=== PATIENT | female | born 1995 | race Two or more races ===

== ENCOUNTER 2021-08-07 19:14 | Emergency (ER) | payer SELFPAY ==
[~2021-08-07] VITALS: Ht 167.6 cm; Wt 60.0 kg
[2021-08-07 21:39] LABS: BILIRUBIN,URINE SMALL (NEG); CLARITY,URINE CLEAR; COLOR,URINE AMBER; NITRITE,URINE NEGATIVE (NEG); PROTEIN,URINE NEGATIVE (NEG-TRACE)
[2021-08-07 21:44] LABS: RBC,URINE RARE /HPF (0-2)
[2021-08-07 21:45] LABS: BACTERIA,URINE 0 /HPF (0-FEW); WBC,URINE 20-40 /HPF (0-4)
--- NOTE | 2021-08-07 21:48 | PHYS DOC ---
Past Medical History Past Surgical History: No Surgical History General Adult EDM: Chief Complaint: VAGINAL BLEEDING HPI: HPI: 25 yo F at 11w5d (based on 05/17 lmp), has medical history of hypothyroidism, presents the ED with complaints of vaginal bleeding yesterday such that she used 3 pads. Reports no vaginal bleeding today. States she was anxious at work, became dizzy and was sweating while she was vomiting up yellow emesis. States she is had morning sickness for the past month and a half. Had a positive test performed at a hospital in [place] when she was seen for dizziness. Reports she uses protection for sexual intercourse. States she had a white-yellow discharge yesterday when using the restroom. Has received the majority vaccine. Is not concerned for sexually transmitted diseases. States she came to the emergency room because she cannot see her physician for another month and is worried about her . H/o 3 , uncomplicated pregnancies. patient is Armenian-speaking and starting sheet tank operator services were used for this [id number]. Review of Systems: Review of Systems: Constitutional: Denies fever or chills. [] Eyes: Denies change in visual acuity. [] HENT: Denies nasal congestion or sore throat. [] Respiratory: Denies cough or shortness of breath. [] Cardiovascular: Denies chest pain or edema. [] GI: Denies nausea, vomiting, bloody stools or diarrhea. [] : Denies dysuria or flank pain or current vaginal bleeding Musculoskeletal: Denies back pain or joint pain. [] Integument: Denies rash or diaphoresis Neurologic: Denies headache, focal weakness or sensory changes. [] Endocrine: Denies polyuria or polydipsia. [] Lymphatic: Denies swollen glands. [] Psychiatric: Denies depression or suicidal ideations Heart Score: C/O Chest Pain: No Risk Factors: Risk Factors: DM, Current or recent (<one month) smoker, HTN, HLP, family history of CAD, obesity. Risk Scores: Score 0 - 3: 2.5% MACE over next 6 weeks - Discharge Home Score 4 - 6: 20.3% MACE over next 6 weeks - Admit for Clinical Observation Score 7 - 10: 72.7% MACE over next 6 weeks - Early Invasive Strategies Allergies: Allergies: Allergies Coded Allergies Type Severity Reaction Last Updated Verified No Known Drug Allergies 08/07/21 No Physical Exam: PE: Constitutional: Well developed, well nourished, no acute distress, non-toxic appearance. HENT: Normocephalic, atraumatic, Eyes: EOMI, conjunctiva normal, no discharge. Neck: Normal range of motion, supple, Cardiovascular: S1/2 present, mild tachycardia Lungs & Thorax: Speaking in full sentences, bilateral equal chest rise, no tachypnea or increased work of breathing Abdomen: soft, no tenderness, Skin: Warm, dry, no erythema, no rash. [] Back: No tenderness, no CVA tenderness. [] Extremities: No tenderness, no cyanosis, no lower extremity edema Neurologic: Alert and oriented X 3, normal motor function, normal sensory function, no focal deficits noted. [] Psychologic: Affect normal, judgement normal, mood normal. [] Current Patient Data: Labs: Laboratory Tests Test 08/07/21 21:33 POC Urine HCG, Qualitative Hcg positive (Negative) Vital Signs: Vital Signs Date Time Temp Pulse Resp B/P (MAP) Pulse Ox O2 Delivery O2 Flow Rate FiO2 08/07/21 21:10 97.5 100 16 134/75 (94) 100 97.5 EKG: EKG: [] Radiology/Procedures: Radiology/Procedures: []IMAGING REPORT Signed PATIENT: YESIKA CURTISCOUNT: [id number] : 1995 LOCATION: ER AGE: 25 SEX: F EXAM STATUS: REG ER ORD. PHYSICIAN: FAITH SIMMONS DO REASON: vb in PROCEDURE: OB < 14 WKS US OB <14 WKS +TV Clinical Indication: Reason: vb in / Spl. Instructions: / History: Comparison: None. TECHNIQUE: Real-time ultrasound imaging of the pelvis using transabdominal window is performed. Findings: Uterus measures 8.4 x 10 x 8.8 cm. There is an intrauterine gestational sac with normal contour. No perigestational hemorrhage is seen. In the gestational sac a yolk sac is not identified. A pole is identified. Stigler-rump length 4.3 cm, 11 weeks and 1 day. Sonographic EDC is February 25, 2022. Estimated heart rate 168 bpm. There is normal blood flow in the right ovary. There is a small probable corpus luteum. The left maternal ovary is not visualized probably due to overlying bowel gas. No cul-de-sac free fluid is seen. The cervix appears closed. The urinary bladder is unremarkable. IMPRESSION: 1. Single live intrauterine gestation, estimated sonographic gestational age 11 weeks and 1 day. 2. Small probable right corpus luteum. Electronically signed by: Fuentes Stevenson MD (08/07/2021 10:47 PM) [facility] DICTATED and SIGNED BY: FUENTES STEVENSON MD DATE: 08/07/21 [id number] 0 Course & Med Decision Making: Course & Med Decision Making Pertinent Labs and Imaging studies reviewed. (See chart for details) Concern for threatened - no active vaginal bleeding today. TVUS w/IUP, normal FHR. Urinalysis concerning for early urinary tract infection will treat with Vantin for complicated UTI. Patient reports morning sickness symptoms - will prescribe vitamin B6 and Zofran ODT. Patient was treated for bacterial vaginosis in the ED with 2 g of Flagyl. Patient calm in ED, in no distress with no active vomiting. Does appear slightly anxious and worried regarding her -was educated with starting sheet tank operator phone regarding threatened miscarriage. Tachycardia spontaneously resolved. Will discharge home with strict ED return precautions were given for vaginal bleeding, abdominal pelvic pain, fever or abnormal vaginal discharge. Encouraged urgent outpatient follow-up with PMD and SUPPLY CONTROLLER for definitive management of . Life-threatening processes were considered but are low suspicion at this time, given history, physical exam and ED workup. Pt was educated on all prescription medications and adverse effects. All patient's questions were answered and pt was stable at time of discharge. Life/limb-threatening differential includes but is not limited to, ectopic , septic , sepsis/infection (endometritis, sti/pid, cystitis, pyelonephritis, Ok's gangrene or necrotizing fasciitis, abscess), ovarian torsion, ruptured hemorrhagic ovarian cyst, endometriosis, ureterolithiasis, thrombophlebitis, hemorrhage/DIC, organ prolapse, abdominal aortic aneurysm, mesenteric ischemia, neoplasm, bowel obstruction or surgical abdomen. I have spoken with the patient and/or caregivers. I explained the patient's condition, diagnoses and treatment plan based on the information available to me at this time. I have answered the patient and/or caregiver's questions and addressed any concerns. The patient and/or caregivers have a good understanding of patient's diagnosis, condition and treatment plan as can be expected at this point. Vital signs have been stable. Patient's condition is stable and appropriate for discharge from the emergency department. Patient will pursue further outpatient evaluation with primary care physician or other designated or consulting physician as outlined in the discharge instructions. The patient and/or caregivers are agreeable to this plan of care and follow-up instructions have been explained in detail. The patient and/or caregivers have received these instructions in written form and have expressed an understanding of the discharge instructions. The patient and/or caregivers are aware that any significant change of condition or worsening of symptoms should prompt immediate return to this or the closest emergency department or call to 911. [employer] Disclaimer: Dragon Disclaimer: This electronic medical record was generated, in whole or in part, using a voice recognition dictation system. Departure Departure Impression: Primary Impression: Threatened in first trimester Additional Impressions: Vomiting during UTI (urinary tract infection) Bacterial vaginosis in Disposition: 01 HOME / SELF CARE / HOMELESS Condition: STABLE Referrals: NO PCP (PCP) Rocio un seguimiento con luis mdico de atencin primaria en 1 semana para la atencin de rutina O SEGUIMIENTO CON MEDICINA FAMILIAR: [address] [facility], [facility] [address] [place] [address] Telfono: [phone] Patient Instructions: Bacterial Vaginosis, Hyperemesis Gravidarum, Urinary Tract Infection Additional Instructions: SEGUIMIENTO CON OB / PATTERN MAKER: PARA UN TRATAMIENTO DEFINITIVO EN 2-3 GIORDANO PARA EL EMBARAZO [facility] [address] [facility], [address] [place] [address] Telfono: INSTRUCCIONES GENERALES DE NICOLE DEL DEPARTAMENTO DE EMERGENCIAS Kwaku por venir al Departamento de Emergencias (ED) del [facility] hoy y confiando en nosotros con luis cuidado. Confiamos que haya tenido kimberly experiencia positiva en nuestra Emergencia Departamento. Si desea hablar con la gerencia del departamento, puede llamar al Director al [phone]. LILIBETH INSTRUCCIONES DE SEGUIMIENTO SON LAS SIGUIENTES: 1. Tiene un mdico privado? Si no tiene un mdico privado, solicite un lista de recursos de mdicos o clnicas que pueden ayudarlo con la atencin de seguimiento. 2. El Physicain de Emergencias hager interpretado lilibeth radiografas. El especialista en jordin X tambin revselos. Si hay un cambio en los resultados, se le notificar en 48 horas cuando en todo posible. 3. Se hager realizado kimberly prueba de laboratorio o cultivo, se revisarn lilibeth resultados y se le notificado si necesita un cambio de tratamiento. INSTRUCCIONES E INFORMACIN ADICIONALES: 1. Luis atencin hoy hager sido supervisada por un mdico especialmente capacitado en emergencias. cuidado. Muchos problemas requieren ms de kimberly evaluacin para un diagnstico completo y tratamiento. Le recomendamos que programe luis laura de seguimiento segn lo recomendado para Asegurar el tratamiento completo de luis enfermedad o lesin. Si no puede obtener un seguimiento cuidado y contina teniendo un problema, o si luis condicin empeora, le recomendamos que Regrese al servicio de urgencias. 2. No podemos determinar con seguridad luis condicin por telfono ni podemos jerman consejos mdicos slidos por telfono. Por estas razones de seguridad, si llama al mdico consejo, le pediremos que acuda al servicio de urgencias para kimberly evaluacin adicional. 3. Si tiene alguna pregunta con respecto a estas instrucciones de nicole, llame al servicio de urgencias al . INFORMACIN DE SEGURIDAD: En genaro de la seguridad, el bienestar y la prevencin de lesiones; te animamos a que uses tu cinturn de seguridad, si fuma; bastante fumador, y alentamos a la merced a usar un ora protector para andar en bicicleta y otros eventos deportivos que presentan un mayor riesgo de lesin en la jack. SI LILIBETH SNTOMAS EMPEORAN O SE DESARROLLAN NUEVOS SNTOMAS, O TIENE PREOCUPACIONES ACERCA DE LUIS CONDICIN; O SI LUIS CONDICION EMPLEA MIENTRAS ESPERA LUIS LAURA DE SEGUIMIENTO; CUALQUIERA PNGASE EN CONTACTO CON LUIS MDICO DE CUIDADO PRIMARIO, EL MDICO CUYO NOMBRE Y NMERO LE DIERON, O REGRESE INMEDIATAMENTE AL EDIFICIO. Scripts Pyridoxine Hcl (VITAMIN B-6 ) 50 Mg Tablet 25 MG PO every 6-8 hours PRN for NAUSEA MDD 200 mg, #20 TAB Prov: FAITH SIMMONS DO 08/08/21 Ondansetron (ONDANSETRON ODT) 4 Mg Tab.rapdis 1 TAB PO PRN Q6-8HRS for nausea/vomiting, #16 TAB Prov: FAITH SIMMONS DO 08/08/21 Cefpodoxime Proxetil (CEFPODOXIME PROXETIL) 100 Mg Tablet 100 MG PO BID for 7 Days, #14 TAB Prov: FAITH SIMMONS DO 08/08/21 FAITH SIMMONS DO Aug 07, 2021 21:48
[2021-08-07 21:52] LABS: BASO % 0 % (0-3); EOS # 0.2 x10^3/uL (0.0-0.7); EOS % 2 % (0-3); HEMATOCRIT 38.4 % (36.0-47.0); HEMOGLOBIN 13.3 g/dL (12.0-15.5); LYMPH # 2.3 x10^3/uL (1.0-4.8); LYMPH % 27 % (24-48); MEAN CORPUSCULAR HEMOGLOBIN 28 pg (25-35); MEAN CORPUSCULAR HGB CONC 35 g/dL (31-37); MEAN CORPUSCULAR VOLUME 81 fL (79-100); MONO # 0.8 x10^3/uL (0.0-1.1); MONO % 9 % (0-9); NEUT # 5.3 x10^3/uL (1.8-7.7); NEUT % 62 % (31-73); PLATELET COUNT 238 x10^3/uL (140-400); RED BLOOD COUNT 4.74 x10^6/uL (3.50-5.40); RED CELL DISTRIBUTION WIDTH 13.5 % (11.5-14.5); WHITE BLOOD COUNT 8.5 x10^3/uL (4.0-11.0)
[2021-08-07 21:59] LABS: CALCIUM 8.5 mg/dL (8.5-10.1); CREATININE 0.5 mg/dL (0.6-1.0); GFR 149.1; POTASSIUM 3.7 mmol/L (3.5-5.1)
[2021-08-07 22:00] LABS: PROTHROMBIN TIME PATIENT 12.7 SEC (11.7-14.0)
[2021-08-07 22:04] LABS: ALBUMIN/GLOBULIN RATIO 0.7 (1.0-1.7); TOTAL BILIRUBIN 0.3 mg/dL (0.2-1.0); TOTAL PROTEIN 7.1 g/dL (6.4-8.2)
--- NOTE | 2021-08-07 22:49 | RAD ---
US OB <14 WKS +TV Clinical Indication: Reason: vb in / Spl. Instructions: / History: Comparison: None. TECHNIQUE: Real-time ultrasound imaging of the pelvis using transabdominal window is performed. Findings: Uterus measures 8.4 x 10 x 8.8 cm. There is an intrauterine gestational sac with normal contour. No perigestational hemorrhage is seen. In the gestational sac a yolk sac is not identified. A pole is identified. Colbert-rump length 4.3 cm, 11 weeks and 1 day. Sonographic EDC is February 25, 2022. Estimated heart rate 168 bpm. There is normal blood flow in the right ovary. There is a small probable corpus luteum. The left mate rnal ovary is not visualized probably due to overlying bowel gas. No cul-de-sac free fluid is seen. The cervix appears closed. The urinary bladder is unremarkable. IMPRESSION: 1. Single live intrauterine gestation, estimated sonographic gestational age 11 weeks and 1 day. 2. Small probable right corpus luteum. Electronically signed by: Tyler Stevenson MD (08/07/2021 10:47 PM) [facility]
[2021-08-08] VITALS: BP 138/81
[2021-08-08] MEDS ORDERED: ONDA4TAB12 PO (00:09)
[2021-08-08] MEDS ORDERED: CEFP100T PO (00:09)
[2021-08-08] MEDS ORDERED: PYRI50TA6 PO (00:09)
[2021-08-08] MEDS ORDERED: ONDANSETRON ODT 4 MG TAB.RAPDIS. PO ONE (00:30)
[2021-08-08] MEDS ORDERED: metroNIDAZOLE 500 MG TABLET PO ONE (00:30)
[2021-08-09 19:02] LABS: GC PROBE Negative (Negative)
== END 2021-08-08 00:38 | disposition home or self-care (01) ==
LOC: ER 19:14
DX: O20.0 Threatened abortion (principal); O23.41 Unspecified infection of urinary tract in pregnancy, first trimester; N39.0 Urinary tract infection, site not specified; N76.0 Acute vaginitis; B96.89 Other specified bacterial agents as the cause of diseases classified elsewhere; Z3A.11 11 weeks gestation of pregnancy
CPT/HCPCS: 36415; 76801; 80053; 81001; 81025; 82550; 84484; 84702; 85025; 85610; 85730; 86850; 86900; 86901; 87086; 87491; 87591; 99284; Q0111